=== PATIENT | female | born 1970 | race Caucasian/White ===

== ENCOUNTER 2018-03-03 06:44 | Emergency (ER) | payer OTHER | END 2018-03-03 07:28 | disposition home or self-care (01) | LOC: FTE 06:44 | DX: T16.2XXA Foreign body in left ear, initial encounter (principal); X58.XXXA Exposure to other specified factors, initial encounter; Y92.9 Unspecified place or not applicable | CPT/HCPCS: 69200; 99283-25 ==

== ENCOUNTER → 2018-07-16 | Emergency (ER) | payer OTHER | END | disposition home or self-care (01) | LOC: FTE 11:34 | DX: H65.02 Acute serous otitis media, left ear (principal); H72.92 Unspecified perforation of tympanic membrane, left ear | CPT/HCPCS: 99283; Z7502 ==

== ENCOUNTER 2018-07-21 20:30 | Emergency (ER) | payer OTHER ==
[2018-07-21 21:11] LABS: URINE BLOOD (Dip) POC 2+ (NEGATIVE); URINE GLUCOSE (Dip) POC Negative (NEGATIVE); URINE KETONES (Dip) POC Negative (NEGATIVE); URINE LEUKOCYTE EST (Dip) POC Negative (NEGATIVE); URINE NITRITE (Dip) POC Negative (NEGATIVE); URINE TOTAL PROTEIN POC Negative (NEGATIVE)
[2018-07-21 21:11] LABS: URINE PH (Dip) POC 6.5 (5.0-8.5)
[2018-07-21] MEDS: KETOROLAC 30 MG INJ IM (21:13)
[2018-07-21] MEDS: LORAZEPAM 0.5 MG TAB PO (21:13)
[2018-07-21 21:38] LABS: TROPONIN-I < 0.012 ng/ml (0.000-0.120)
== END 2018-07-21 22:23 | disposition home or self-care (01) ==
LOC: E/R 20:30
DX: R07.9 Chest pain, unspecified (principal); F43.0 Acute stress reaction; F41.9 Anxiety disorder, unspecified
CPT/HCPCS: 81003; 81025; 84484; 93005; 99284-25

== ENCOUNTER 2018-10-05 23:17 | Emergency (ER) | payer OTHER ==
[2018-10-06] MEDS: morphine 4 MG/ML VIAL IV (01:24)
[2018-10-06] MEDS: ONDANSETRON 4 MG INJ IV (01:24)
[2018-10-06 01:59] LABS: ADD MAN DIFF? NO
[2018-10-06] MEDS: IBUPROFEN 600 MG TAB PO (02:01)
[2018-10-06 02:03] LABS: BASOPHIL # 0.1 10^3/ul (0.0-0.1); BASOPHILS % 0.6 % (0.0-2.0); EOSINOPHILS # 0.6 10^3/ul (0.0-0.5); EOSINOPHILS % 4.4 % (0.0-7.0); HEMATOCRIT 37.2 % (37.0-47.0); HEMOGLOBIN 11.8 g/dl (12.0-16.0); LYMPHOCYTES # 2.4 10^3/ul (0.8-2.9); LYMPHOCYTES % 19.1 % (15.0-51.0); MEAN CORPUSCULAR HEMOGLOBIN 28.2 pg (29.0-33.0); MEAN CORPUSCULAR HGB CONC 31.7 g/dl (32.0-37.0); MEAN CORPUSCULAR VOLUME 88.8 fl (82.0-101.0); MEAN PLATELET VOLUME 9.3 fl (7.4-10.4); MONOCYTE # 0.9 10^3/ul (0.3-0.9); MONOCYTES % 7.3 % (0.0-11.0); NEUTROPHIL # 8.5 10^3/ul (1.6-7.5); NEUTROPHILS % 68.2 % (39.0-77.0); PLATELET COUNT 375 10^3/UL (140-415); RED BLOOD COUNT 4.19 10^6/ul (4.20-5.40); RED CELL DISTRIBUTION WIDTH 15.4 % (11.5-14.5)
[2018-10-06 02:03] LABS: WHITE BLOOD COUNT 12.5 10^3/ul (4.8-10.8)
[2018-10-06 02:33] LABS: ADD UMIC YES; UR CLARITY TURBID (CLEAR); UR COLOR RED (YELLOW)
[2018-10-06 02:34] LABS: UR BILIRUBIN (Dip) NEGATIVE (NEGATIVE); UR GLUCOSE (Dip) 1+ mg/dL (NEGATIVE); UR KETONES (Dip) NEGATIVE (NEGATIVE); UR SPECIFIC GRAVITY (Dip) 1.029 (1.003-1.030); UR TOTAL PROTEIN (Dip) 2+ mg/dl (NEGATIVE); URINE PH (Dip) 6 (5.0-9.0); URINE SPECIFIC GRAVITY (Dip) 1.029 (1.003-1.030)
[2018-10-06 02:35] LABS: UR BLOOD (Dip) 3+ mg/dL (NEGATIVE); UR LEUKOCYTE ESTERASE (Dip) NEGATIVE Leu/ul (NEGATIVE); UR NITRITE (Dip) NEGATIVE (NEGATIVE); UR UROBILINOGEN (Dip) NEGATIVE (NEGATIVE)
[2018-10-06 02:36] LABS: UR WBC 2 /HPF (0-5)
[2018-10-06 02:37] LABS: UR RBC > 182 /HPF (0-5); UR SQUAMOUS EPITHELIAL CELL FEW /HPF (FEW); URINE RBCS >200 /HPF (0)
[2018-10-06 02:39] LABS: UR BACTERIA FEW /HPF (NONE SEEN)
[2018-10-06] MEDS: IOHEXOL 300MG/ML 150 ML BTL (03:05)
[2018-10-06] MEDS: SOD CHLORIDE 0.9% 100 ML (03:05)
[2018-10-06 03:22] LABS: ALANINE AMINOTRANSFERASE 20 IU/L (13-69); ALBUMIN 3.5 g/dl (3.3-4.9); ALBUMIN/GLOBULIN RATIO 1.02; ALKALINE PHOSPHATASE 97 IU/L (42-121); ANION GAP 7 (5-13); ASPARTATE AMINO TRANSFERASE 21 IU/L (15-46); BILIRUBIN,INDIRECT 0.1 mg/dl (0-1.1); BILIRUBIN,TOTAL 0.1 mg/dl (0.2-1.3); BLOOD UREA NITROGEN 10 mg/dl (7-20); CALCIUM 8.6 mg/dl (8.4-10.2); CARBON DIOXIDE 23 mmol/L (21-31); CHLORIDE 110 mmol/L (97-110); Estimated GFR > 60 mL/min (>60); GLUCOSE 98 mg/dl (70-220); LIPASE 76 U/L (23-300); SODIUM 140 mmol/L (135-144); TOTAL PROTEIN 6.9 g/dl (6.1-8.1)
== END 2018-10-06 06:29 | disposition home or self-care (01) ==
LOC: FTE 23:17
DX: K42.9 Umbilical hernia without obstruction or gangrene (principal); R40.2412 Glasgow coma scale score 13-15, at arrival to emergency department
CPT/HCPCS: 36415; 74177; 80053; 81001; 81025; 83690; 85025; 99285-25

== ENCOUNTER 2019-01-30 16:16 | Emergency (ER) | payer OTHER | END 2019-01-31 18:52 | disposition home or self-care (01) | LOC: E/R 01-31 18:52 | DX: S63.612A Unspecified sprain of right middle finger, initial encounter (principal); W21.01XA Struck by football, initial encounter; Y92.321 Football field as the place of occurrence of the external cause | CPT/HCPCS: 73140; 99283-25 ==